=== PATIENT | female | born 1945 | race Caucasian/White ===

== ENCOUNTER 2017-01-15 08:59 | Day surgery (SDC) | payer OTHER ==
[2017-01-12 09:58] LABS: ASPARTATE AMINO TRANSFERASE 10 U/L (15-37); BLOOD UREA NITROGEN 22 mg/dL (7-18)
[~2017-01-15] VITALS: Ht 157.5 cm; Wt 67.5 kg
[~2017-01-15 08:59] MED LIST: CRAN500C6 PO; FELO10TA PO; GEMF600T3 PO; GREEN TEA PO; INSU100V13 SC; LIPA1CAP61 PO; LISI30TA4 PO; METF500T4 PO; NIAC250T7 PO; TURMERIC PO; UBIQUINOL PO; VITAMIN D3 PO; [UNRECOGNIZED DRUG - OTHER] PO
[2017-01-15] MEDS ORDERED: SODIUM BICARBONATE 4.2%, 5ML ONE (09:00)
[2017-01-15] MEDS ORDERED: LIDOCAINE 1%, 20ML ONE (09:00)
[2017-01-15] MEDS ORDERED: LACTATED RINGERS 1,000 ML IV SCH (11:04)
[2017-01-15 11:05] VITALS: BP 146/88
[2017-01-15] MEDS ORDERED: HYDROcodone/APAP 7.5-325MG/15ML UDC PO PRN (14:30)
[2017-01-15] MEDS ORDERED: OXYcodone 5 MG/5 ML ORAL.SOL UDC PO PRN (14:30)
[2017-01-15] MEDS ORDERED: ONDANSETRON 2MG/ML, 2ML IVPush PRN (14:30)
[2017-01-15] MEDS ORDERED: PROMETHAZINE 25 MG/ML, 1ML IV PRN (14:30)
[2017-01-15] MEDS ORDERED: HYDROmorphone 1 MG/ML, 1ML IV PRN (14:30)
[2017-01-15] MEDS ORDERED: FENTANYL PF 100 MCG/2ML IV PRN (14:30)
[2017-01-15] MEDS ORDERED: EPHEDRINE 50 MG/ML, 1ML IVPush PRN (14:30)
[2017-01-15] MEDS ORDERED: LABETALOL 5MG/ML, 20ML IV PRN (14:30)
[2017-01-15] MEDS ORDERED: ACETAMINOPHEN 325 MG TABLET PO PRN (14:30)
[2017-01-15] MEDS ORDERED: ISOSULFAN BLUE 10 MG/ML, 5ML IV ONE (14:44)
[2017-01-15] MEDS ORDERED: BUPIVACAINE/PF-EPI 0.5% 1:200K INFIL ONE (14:45)
[2017-01-15] MEDS ORDERED: HYDROmorphone 1 MG/ML, 1ML ONE (15:38)
[2017-01-15] MEDS ORDERED: ACETAMINOPHEN 650 MG/20.3 ML UDC ONE (15:38)
[2017-01-15] MEDS ORDERED: FENTANYL PF 100 MCG/2ML ONE (15:38)
[2017-01-15] MEDS ORDERED: OXYcodone 5 MG/5 ML ORAL.SOL UDC ONE (15:39)
[2017-01-15] MEDS ORDERED: ONDANSETRON 2MG/ML, 2ML ONE (15:45)
[2017-01-15] MEDS ORDERED: hydrALAzine 20 MG/ML, 1ML ONE (15:55)
[2017-01-15] MEDS: hydrALAzine 20 MG/ML, 1ML IV PRN ×2 (15:58→16:23)
[2017-01-15] MEDS ORDERED: PROMETHAZINE 25 MG/ML, 1ML ONE (16:42)
[2017-01-15] MEDS ORDERED: METOCLOPRAMIDE 5 MG/ML, 2ML ONE (18:20)
[2017-01-15] MEDS ORDERED: SCOPOLAMINE PATCH, 1.5MG PATCH.TD72 TD ONE ×2 (18:26→18:30)
[2017-01-15] MEDS ORDERED: METOCLOPRAMIDE 5 MG/ML, 2ML IVPush ONE (18:30)
== END 2017-01-15 19:14 | disposition home or self-care (01) ==
LOC: OR 08:59 → OUT 19:14
PROVIDERS: ATTEND Surgery
DX: C50.912 Malignant neoplasm of unspecified site of left female breast (principal); E11.9 Type 2 diabetes mellitus without complications; I10 Essential (primary) hypertension; E78.5 Hyperlipidemia, unspecified; Z88.8 Allergy status to other drugs, medicaments and biological substances; Z79.82 Long term (current) use of aspirin; Z87.891 Personal history of nicotine dependence
CPT/HCPCS: 19281; 19301; 36415; 38525; 38792; 76098; 80053; 82962; 88307; 88329; 93005; A9541; C1729; J0171; J0330; J0360; J0690; J1170; J2250; J2405; J2550; J2704; J2765; J3010; J3490; J7120

== ENCOUNTER 2020-09-07 13:01 | Observation (INO) | payer MEDICARE, OTHER ==
[~2020-09-07] VITALS: Ht 157.5 cm; Wt 62.0 kg
[~2020-09-07 13:01] MED LIST changes: -FELO10TA PO; +FELO10TA4 PO; +GEMF-31 PO; -GEMF600T3 PO; +METF500T17 PO; -METF500T4 PO
[2020-09-07] MEDS ORDERED: SODIUM CHLORIDE FLUSH 10ML SYR IVF ONE (14:00)
[2020-09-07] MEDS ORDERED: SODIUM CHLORIDE 0.9% 1,000 ML IV ONE (14:00)
--- NOTE | 2020-09-07 14:30 | NUR ---
BREAK RN NOTE: REPORT TAKEN FROM FERMIN MENDEZ. PT PRESENTS TO ED WITH INTERMITTENT CONFUSION FOR LAST FEW WEEKS PER , PT'S STATES PT HAS BEEN NONCOMPLIANT WITH DIABETIC DIET. ALL MONITORS IN PLACE. PT A&O, RESPS EVEN AND UNLABORED. PIV PLACED BY STUDENT RN, SUPERVISED BY THIS RN. NS INFUSING PER EMAR. LABS DRAWN, URINE STRAIGHT CATH OBTAINED USING STERILE TECHNIQUE, ALL SAMPLES WALKED TO LAB. AT BEDSIDE. AWAITING LABWORK AND DISPO.
[2020-09-07 14:33] LABS: PH, VENOUS 7.427 pH (7.320-7.420)
[2020-09-07 14:44] LABS: BASOPHILS % (AUTO) 1 % (0-1); EOSINOPHILS % (AUTO) 0 % (1-7); LYMPHOCYTES % (AUTO) 20 % (22-44); MEAN CORPUSCULAR HEMOGLOBIN 30.5 pg (27.0-34.8); MEAN CORPUSCULAR HGB CONC 34.5 g/dL (32.4-35.8); MONOCYTES % (AUTO) 4 % (2-9); NEUTROPHILS % (AUTO) 75 % (42-75); PLATELET COUNT 259 x10^3/uL (130-400); RED BLOOD COUNT 4.36 x10^6/uL (3.82-5.3)
[2020-09-07 14:50] LABS: ALANINE AMINOTRANSFERASE 21 U/L (12-78); ALBUMIN 3.4 g/dL (3.4-5.0); ANION GAP 9 mmol/L (5-15); CALCIUM 9.4 mg/dL (8.5-10.1); CHLORIDE 98 mmol/L (98-107)
[2020-09-07 14:53] LABS: ALKALINE PHOSPHATASE 158 U/L (45-117); BILIRUBIN,TOTAL 0.6 mg/dL (0.2-1.0); CREATININE 0.97 mg/dL (0.55-1.02); TOTAL PROTEIN 7.4 g/dL (6.4-8.2)
[2020-09-07 14:53] LABS: MICROSCOPIC INDICATED
--- NOTE | 2020-09-07 14:56 | NUR ---
TO CT VIA [facility]
[2020-09-07 15:33] LABS: ACETONE, SERUM Large (80mg/dL) (Negative)
[2020-09-07] MEDS ORDERED: POTASSIUM CHLORIDE 20 MEQ TAB.ER.PRT ONE (15:36)
--- NOTE | 2020-09-07 15:49 | NUR ---
AFTER KNEE XRAY COMPLETED HOSPITALIST AT BEDSIDE
[2020-09-07 15:56] LABS: GAMMA GLUTAMYL TRANSPEPTIDASE 137 U/L (5-55)
[2020-09-07 16:00] LABS: TROPONIN I < 0.015 ng/mL (0.000-0.045)
[2020-09-07] MEDS ORDERED: POTASSIUM CHLORIDE 20 MEQ TAB.ER.PRT PO ONE (16:00)
[2020-09-07 16:01] LABS: HCT (SEDRATE) 38.5 % (34.6-47.8)
[2020-09-07] MEDS ORDERED: GUAIFENESIN/DM 200-20MG, 10ML UDC PO PRN (16:30)
[2020-09-07] MEDS ORDERED: ACETAMINOPHEN 325 MG TABLET PO PRN (16:30)
[2020-09-07] MEDS ORDERED: hydrALAzine 20 MG/ML, 1ML IVPush PRN (16:30)
[2020-09-07] MEDS ORDERED: ONDANSETRON 2MG/ML, 2ML IVPush PRN (16:30)
[2020-09-07] MEDS ORDERED: MELATONIN 5 MG TABLET PO PRN (16:30)
[2020-09-07] MEDS ORDERED: DOCUSATE 100 MG CAPSULE PO PRN (16:30)
[2020-09-07] MEDS ORDERED: INSULIN LISPRO SINGLE DOSE, ER SQ-INSULIN ONE (16:32)
--- NOTE | 2020-09-07 16:58 | NUR ---
ULTRASOUND AT BEDSIDE
--- NOTE | 2020-09-07 17:46 | NUR ---
REPORT TO JOSY SARMIENTO TO BE TRANSPORTED.
[2020-09-07] MEDS ORDERED: metFORMIN 500 MG TABLET ONE (17:49)
[2020-09-07] MEDS: INSULIN LISPRO 100 UNITS/ML, PEN SQ-INSULIN SCH ×2 (17:55→21:13)
[2020-09-07] MEDS: metFORMIN 500 MG TABLET PO SCH (17:56)
[2020-09-07] MEDS: PANCRELIPASE 24,000 CAPSULE.DR PO SCH (17:56)
[2020-09-07 21:09] VITALS: BP 143/78
[2020-09-07] MEDS: GEMFIBROZIL 600 MG TABLET PO SCH (21:12)
[2020-09-07] MEDS: INSULIN GLARGINE 100 UNITS/ML, PEN SQ-INSULIN SCH (21:12)
[2020-09-07] MEDS: AMLODIPINE 5 MG TABLET PO SCH (21:12)
[2020-09-07] MEDS: SODIUM CHLORIDE FLUSH 10ML SYR IVF SCH (21:14)
[2020-09-08 01:38] VITALS: BP 153/75
[2020-09-08 05:09] LABS: BASOPHILS % (AUTO) 1 % (0-1); EOSINOPHILS % (AUTO) 1 % (1-7); LYMPHOCYTES % (AUTO) 39 % (22-44); MEAN CORPUSCULAR HGB CONC 34.9 g/dL (32.4-35.8); MEAN PLATELET VOLUME 9.6 fL (7.4-10.4); MONOCYTES % (AUTO) 6 % (2-9); NEUTROPHILS % (AUTO) 54 % (42-75); PLATELET COUNT 273 x10^3/uL (130-400); RED BLOOD COUNT 4.19 x10^6/uL (3.82-5.3)
[2020-09-08 05:15] LABS: CHLORIDE 107 mmol/L (98-107)
[2020-09-08 05:20] LABS: ALANINE AMINOTRANSFERASE 16 U/L (12-78); ALBUMIN 2.8 g/dL (3.4-5.0); ALKALINE PHOSPHATASE 116 U/L (45-117); ANION GAP 6 mmol/L (5-15); BILIRUBIN,TOTAL 0.4 mg/dL (0.2-1.0); CALCIUM 8.6 mg/dL (8.5-10.1); CREATININE 0.85 mg/dL (0.55-1.02); TOTAL PROTEIN 6.5 g/dL (6.4-8.2)
[2020-09-08] MEDS: PANCRELIPASE 24,000 CAPSULE.DR PO SCH ×3 (06:28→16:20)
[2020-09-08] MEDS ORDERED: POTASSIUM CHLORIDE 20 MEQ TAB.ER.PRT PO ONE (06:30)
[2020-09-08 07:33] VITALS: BP 112/66
[2020-09-08] MEDS: metFORMIN 500 MG TABLET PO SCH (07:51)
[2020-09-08] MEDS: INSULIN LISPRO 100 UNITS/ML, PEN SQ-INSULIN SCH ×4 (07:51→21:03)
[2020-09-08] MEDS ORDERED: UBIQUINOL 50 MG PO SCH (09:00)
[2020-09-08] MEDS ORDERED: TURMERIC 400 MG PO SCH (09:00)
[2020-09-08] MEDS ORDERED: GREEN TEA PO SCH (09:00)
[2020-09-08] MEDS ORDERED: OMNIPAQUE 350 MG/ML, 100ML BOTTLE ONE (09:00)
[2020-09-08] MEDS: AMLODIPINE 5 MG TABLET PO SCH ×2 (09:51→21:01)
[2020-09-08] MEDS: MULTIVITS,STRESS FORMULA 1 TABLET PO SCH (09:51)
[2020-09-08] MEDS: LISINOPRIL 20 MG TABLET PO SCH (09:51)
[2020-09-08] MEDS: CHOLECALCIFEROL 400 UNITS TABLET PO SCH (09:51)
[2020-09-08] MEDS: SODIUM CHLORIDE FLUSH 10ML SYR IVF SCH ×2 (09:52→21:02)
[2020-09-08] MEDS: GEMFIBROZIL 600 MG TABLET PO SCH ×2 (09:52→21:01)
[2020-09-08] MEDS: NIACIN 250 MG CAPSULE.ER PO SCH (09:53)
[2020-09-08 13:35] VITALS: BP 143/84
[2020-09-08 19:42] VITALS: BP 155/74
[2020-09-08] MEDS: INSULIN GLARGINE 100 UNITS/ML, PEN SQ-INSULIN SCH (21:03)
[2020-09-09 01:02] VITALS: BP 126/78
[2020-09-09 05:21] LABS: ANION GAP 8 mmol/L (5-15); CALCIUM 8.2 mg/dL (8.5-10.1); CHLORIDE 106 mmol/L (98-107)
[2020-09-09 05:23] LABS: CREATININE 0.81 mg/dL (0.55-1.02)
[2020-09-09] MEDS ORDERED: POTASSIUM CHLORIDE 20 MEQ TAB.ER.PRT PO ONE (06:30)
[2020-09-09 06:40] VITALS: BP 126/86
[2020-09-09] MEDS: INSULIN LISPRO 100 UNITS/ML, PEN SQ-INSULIN SCH ×2 (07:00→12:39)
[2020-09-09] MEDS ORDERED: MAGNESIUM SULFATE PMX 2GM/50ML 50 ML IV ONE (07:30)
[2020-09-09] MEDS: SODIUM CHLORIDE FLUSH 10ML SYR IVF SCH (09:00)
[2020-09-09] MEDS: AMLODIPINE 5 MG TABLET PO SCH (09:12)
[2020-09-09] MEDS: NIACIN 250 MG CAPSULE.ER PO SCH (09:12)
[2020-09-09] MEDS: PANCRELIPASE 24,000 CAPSULE.DR PO SCH ×2 (09:12→12:38)
[2020-09-09] MEDS: GEMFIBROZIL 600 MG TABLET PO SCH (09:12)
[2020-09-09] MEDS: CHOLECALCIFEROL 400 UNITS TABLET PO SCH (09:12)
[2020-09-09] MEDS: MULTIVITS,STRESS FORMULA 1 TABLET PO SCH (09:12)
[2020-09-09] MEDS: LISINOPRIL 20 MG TABLET PO SCH (09:12)
[2020-09-09 09:16] VITALS: BP 174/78
[2020-09-09 12:04] VITALS: BP 155/91
== END 2020-09-09 16:15 | disposition home or self-care (01) ==
LOC: ED 15:11 → EDIP 15:24 → INTOOBSV 15:24 → 3N 18:19
PROVIDERS: ADMIT Internal Medicine; ATTEND Internal Medicine
DX: E11.65 Type 2 diabetes mellitus with hyperglycemia (principal); E87.6 Hypokalemia; E87.1 Hypo-osmolality and hyponatremia; D72.829 Elevated white blood cell count, unspecified; R74.8 Abnormal levels of other serum enzymes; C50.919 Malignant neoplasm of unspecified site of unspecified female breast; I10 Essential (primary) hypertension; K85.30 Drug induced acute pancreatitis without necrosis or infection; R41.3 Other amnesia; R80.9 Proteinuria, unspecified; G93.41 Metabolic encephalopathy; M19.90 Unspecified osteoarthritis, unspecified site; N39.3 Stress incontinence (female) (male); K76.0 Fatty (change of) liver, not elsewhere classified; F03.90 Unspecified dementia, unspecified severity, without behavioral disturbance, psychotic disturbance, mood disturbance, and anxiety; Z90.710 Acquired absence of both cervix and uterus; Z87.891 Personal history of nicotine dependence; W18.30XA Fall on same level, unspecified, initial encounter; Y93.89 Activity, other specified; Y92.89 Other specified places as the place of occurrence of the external cause
CPT/HCPCS: 36415; 70450; 71045; 73564; 74170; 76705; 80048; 80053; 81001; 82010; 82803; 82962; 82977; 83036; 83605; 83735; 83930; 84100; 84132; 84443; 84484; 85025; 85651; 92610; 93005; 96361; 96365; 96366; 97161; 99285; G0378; J1815; J3475; J7030; Q9967